=== PATIENT | female | born 1945 | race Caucasian/White ===

== ENCOUNTER 2019-08-23 20:14 | Emergency (ER) | payer MEDICARE, BC ==
[2019-08-23] MEDS ORDERED: Sodium Chloride 0.9% 10 ML Syringe FLUSH PRN (20:23)
[2019-08-23] MEDS ORDERED: Aspirin 81 MG Tab.Chew PO ONE (20:41)
[2019-08-23] MEDS ORDERED: Nitroglycerin 0.4 MG Tab.SL SL ONE (20:41)
[2019-08-23 20:48] LABS: CHLORIDE,CL 97 mmol/L (98-107); SODIUM,NA 135 mmol/L (136-145)
--- NOTE | 2019-08-23 21:28 | EDM.PDOC ---
ED HPI GENERAL MEDICAL PROBLEM - General Chief Complaint: Chest Pain Stated Complaint: chest pain Time Seen by Provider: 08/23/19 20:22 Source of Information: Reports: Patient History Limitations: Reports: No Limitations - History of Present Illness INITIAL COMMENTS - FREE TEXT/NARRATIVE: Patient comes to ER with complaint of left upper abdominal pain/pain located just beneath left anterior lower rib margin. She admits that she has had this pain "a long time'. At first she said that her first episode was early June. Later she admitted having pain in this area "long before that". The pain is always in this exact location. Appears to be triggered when she has been standing upright for a long time. Nothing specifically relieves it once present. It does not radiate anywhere. No accompanying sweating/nausea/SOB when pain present. Pushing on area makes pain hurt more. She is unable to say how long her usual attacks last, but the reason she came in tonight was because this episode has lasted over 6 hours and it has never done that before. History of colitis that she has been dealing with over the last few years. Says that overall the colitis has improved and she watches her diet closely to avoid foods that trigger the colitis. Has slowly lost weight since having the colitis. Over 20 pounds down now. Denies injuries. No fevers/chills/signs of infection. No HEENT/headache/ Respiratory complaints. Denies cough/wheeze/sob. No palpitations. Does have history of intermittent syncope that affects her out of the blue, but she has not made a connection between that and the current pain complaint. No acute nausea/emesis/stools changes when pain present. Denies UTI complaints/hematuria. Is scheduled for testing at [facility] in two days (Wednesday) for further workup of pain issue as well as syncopal episodes. Testing includes an abdominal CT scan as well as cardiac study per patient. 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 - Related Data Allergies Allergy/AdvReac Type Severity Reaction Status Date / Time Sulfa (Sulfonamide Allergy Hives Verified 08/23/19 20:38 Antibiotics) Home Meds: Home Meds Ascorbate Calcium [Vitamin C] 500 mg PO DAILY 08/23/19 [History] Ascorbic Acid/Vitamin E/Biotin [Hair Skin Nails-Biotin Gummies] 1 tab PO DAILY 08/23/19 [History] Aspirin [Halfprin] 81 mg PO DAILY 08/23/19 [History] Escitalopram [Lexapro] 10 mg PO DAILY 08/23/19 [History] Fish Oil/Rosman-3 Fatty Acids [Fish Oil 1,000 MG] 1 cap PO DAILY 08/23/19 [ History] L.acidoph,Paracasei, B.lactis [Probiotic] 2 cap PO BEDTIME 08/23/19 [History] Loratadine [Claritin] 1 tab PO DAILY 08/23/19 [History] Magnesium Oxide [Magnesium] 400 mg PO DAILY 08/23/19 [History] Multivitamin [Daily Multiple Vitamin] 1 tab PO DAILY 08/23/19 [History] Raloxifene [Evista] 60 mg PO DAILY 08/23/19 [History] Rutin/Hesp/Bioflav/C/[id number] [Bioflex] 1 tab PO BID 08/23/19 [History] carBAMazepine [Carbamazepine] 100 mg PO BID 08/23/19 [History] traZODone HCl [Trazodone HCl] 0.5 tab PO BEDTIME 08/23/19 [History] Past Medical History Cardiovascular History: Reports: Syncope, Other (See Below) (Possible previous MT per recent echo that showed apparent wall motion defect) Respiratory History: Reports: None Gastrointestinal History: Reports: Inflammatory Bowel Disease (Colitis issues over recent years), Other (See Below) (Chronic intermittent bouts of pain high in LUQ underneath rib margin) Musculoskeletal History: Reports: Osteoporosis Neurological History: Reports: Other (See Below) (Trigeminal Neuralgia) Psychiatric History: Reports: Anxiety Immunologic History: Reports: Other (See Below) (environmental allergies) Social & Family History - Tobacco Use Smoking Status *Q: Never Smoker Tobacco Use Within Last Twelve Months: No - Caffeine Use Caffeine Use: Reports: None - Alcohol Use Alcohol Use History: No Alcohol Use in Last Twelve Months: No - Recreational Drug Use Recreational Drug Use: No Drug Use in Last 12 Months: No ED ROS GENERAL - Review of Systems Review Of Systems: Comprehensive ROS is negative, except as noted in HPI. ED EXAM, GENERAL - Physical Exam Exam: See Below Exam Limited By: No Limitations General Appearance: Alert, No Apparent Distress, Thin Eye Exam: Bilateral Eye: EOMI, PERRL Ears: Hearing Grossly Normal Nose: No: Nasal Deformity, Nasal Swelling, Nasal Drainage Throat/Mouth: Normal Lips, Normal Voice, No Airway Compromise Head: Atraumatic, Normocephalic Neck: Supple, Non-Tender, Full Range of Motion Respiratory/Chest: No Respiratory Distress, Lungs Clear, Normal Breath Sounds, No Accessory Muscle Use, Chest Non-Tender Cardiovascular: Regular Rate, Rhythm, No Edema, No Murmur Peripheral Pulses: 2+: Radial (L), Radial (R) GI/Abdominal: Normal Bowel Sounds, Soft, No Distention, Other (some tenderness with palpation when palpated just underneath the left anterior lower rib margin. ). No: Guarding, Rigid, Tender (Female) Exam: Deferred Rectal (Female) Exam: Deferred Back Exam: No: CVA Tenderness (L), CVA Tenderness (R), Muscle Spasm Extremities: Normal Range of Motion, Non-Tender, No Pedal Edema, Normal Capillary Refill Neurological: Alert, Oriented, Normal Cognition, Normal Gait, No Motor/Sensory Deficits Psychiatric: Normal Affect, Normal Mood Skin Exam: Warm, Dry, Intact, Normal Color EKG INTERPRETATION EKG Date: 08/23/19 Time: 20:00 Rhythm: NSR Rate (Beats/Min): 69 [place]: Normal P-Wave: Enlarged QRS: Normal ST-T: Normal QT: Normal Comparison: NA - No Prior EKG Course - Vital Signs Last Recorded V/S: Last Vital Signs Temp Pulse Resp BP 131/69 08/23/19 20:48 Pulse Ox - Orders/Labs/Meds Orders: Active Orders 24 hr Category Date Time Status EKG Documentation Completion [RC] ASDIRECTED Care 08/23/19 20:24 Ordered Chest 2V [CR] Stat Exams 08/23/19 20:23 Ordered UA W/MICROSCOPIC [URIN] Stat Lab 08/23/19 20:23 Ordered Sodium Chloride 0.9% [Saline Flush] Med 08/23/19 20:23 Ordered 10 ml FLUSH ASDIRECTED PRN Saline Lock Insert [OM.PC] Stat Oth 08/23/19 20:23 Ordered Medication Orders Sodium Chloride (Saline Flush) 10 ml FLUSH ASDIRECTED PRN PRN Reason: Keep Vein Open Labs: Laboratory Tests 08/23/19 08/23/19 08/23/19 Range/Units 20:23 20:23 20:23 WBC 5.3 (4.0-10.2) K/uL RBC 3.80 (3.77-5.09) M/uL Hgb 11.6 L (11.7-15.5) g/dL Hct 35.9 (34.0-46.0) % MCV 94.5 (84.0-98.0) fL MCH 30.5 (28.2-33.3) pg MCHC 32.3 (31.7-36.0) g/dL RDW 12.7 (11.2-14.1) % Plt Count 129 L (150-350) K/uL Neut % (Auto) 57.1 (45.0-80.0) % Lymph % (Auto) 30.7 (10.0-50.0) % Carbon % (Auto) 9.9 (2.0-14.0) % Eos % (Auto) 1.9 (0.0-5.0) % Baso % (Auto) 0.4 (0.0-2.0) % Neut # (Auto) 3.01 (1.40-7.00) K/uL Lymph # (Auto) 1.62 (0.50-3.50) K/uL Carbon # (Auto) 0.52 (0.00-1.00) K/uL Eos # (Auto) 0.10 (0.00-0.50) K/uL Baso # (Auto) 0.02 (0.00-0.20) K/uL D-Dimer, Quantitative < 100 (0-400) ng/mL Sodium 135 L (136-145) mmol/L Potassium 4.2 (3.5-5.1) mmol/L Chloride 97 L (98-107) mmol/L Carbon Dioxide 31.6 (21.0-32.0) mmol/L BUN 20 H (7-18) mg/dL Creatinine 0.81 (0.51-1.17) mg/dL Est Cr Clr Drug Dosing TNP Estimated GFR (MDRD) > 60 mL/min Glucose 97 (74-106) mg/dL Calcium 8.6 (8.5-10.1) mg/dL Magnesium 2.1 (1.8-2.4) mg/dL Total Bilirubin 0.1 L (0.2-1.0) mg/dL AST 25 (15-37) U/L ALT 24 (12-78) U/L Alkaline Phosphatase 68 (46-116) IU/L Troponin I 0.000 (0.000-0.056) ng/mL NT-Pro-B Natriuret Pep 87 (0-125) pg/mL Total Protein 7.5 (6.4-8.2) g/dL Albumin 3.8 (3.4-5.0) g/dL TSH, Ultra Sensitive (0.358-3.740) mIU/mL 08/23/19 Range/Units 20:23 WBC (4.0-10.2) K/uL RBC (3.77-5.09) M/uL Hgb (11.7-15.5) g/dL Hct (34.0-46.0) % MCV (84.0-98.0) fL MCH (28.2-33.3) pg MCHC (31.7-36.0) g/dL RDW (11.2-14.1) % Plt Count (150-350) K/uL Neut % (Auto) (45.0-80.0) % Lymph % (Auto) (10.0-50.0) % Carbon % (Auto) (2.0-14.0) % Eos % (Auto) (0.0-5.0) % Baso % (Auto) (0.0-2.0) % Neut # (Auto) (1.40-7.00) K/uL Lymph # (Auto) (0.50-3.50) K/uL Carbon # (Auto) (0.00-1.00) K/uL Eos # (Auto) (0.00-0.50) K/uL Baso # (Auto) (0.00-0.20) K/uL D-Dimer, Quantitative (0-400) ng/mL Sodium (136-145) mmol/L Potassium (3.5-5.1) mmol/L Chloride (98-107) mmol/L Carbon Dioxide (21.0-32.0) mmol/L BUN (7-18) mg/dL Creatinine (0.51-1.17) mg/dL Est Cr Clr Drug Dosing Estimated GFR (MDRD) mL/min Glucose (74-106) mg/dL Calcium (8.5-10.1) mg/dL Magnesium (1.8-2.4) mg/dL Total Bilirubin (0.2-1.0) mg/dL AST (15-37) U/L ALT (12-78) U/L Alkaline Phosphatase (46-116) IU/L Troponin I (0.000-0.056) ng/mL NT-Pro-B Natriuret Pep (0-125) pg/mL Total Protein (6.4-8.2) g/dL Albumin (3.4-5.0) g/dL TSH, Ultra Sensitive 6.193 H (0.358-3.740) mIU/mL Meds: Medications Generic Name Dose Route Start Last Admin Trade Name Freq PRN Reason Stop Dose Admin Sodium Chloride 10 ml 08/23/19 20:23 Saline Flush FLUSH ASDIRECTED PRN Keep Vein Open Discontinued Medications Generic Name Dose Route Start Last Admin Trade Name Freq PRN Reason Stop Dose Admin Aspirin 324 mg 08/23/19 20:41 08/23/19 20:47 Aspirin PO 08/23/19 20:42 324 mg ONETIME ONE Administration Nitroglycerin 0.4 mg 08/23/19 20:41 08/23/19 20:48 Nitrostat SL 08/23/19 20:42 0.4 mg ONETIME ONE Administration - Radiology Interpretation Free Text/Narrative:: Chest xray did not show infiltrate/fluid/obvious acute change - Re-Assessments/Exams Free Text/Narrative Re-Assessment/Exam: Patient's history suggestive of non-cardiac cause for pain complaint. No change in pain with single Nitro. Patient received baby ASA. Troponin/EKG unremarkable. CBC/Chem overall showed no significant aberrations. TSH elevated. Pain reproducible with palpation. Given patient's history of colitis and location of pain, etiology could be GI in nature. She is having a CT on Wednesday to evaluate her abdomen. She is uncertain if she is also having a chest scan done or if it is a different test to evaluate her heart. This will help rule out tumor/aneurysm. Differential discussed with patient. Patient declined admission to observation and serial troponin draws/cardiac monitoring. She also does not wish to have any scans performed tonight and prefers to wait for her scheduled appointments in two days. She felt reassured that there is no obvious cardiac contribution identified at this time and wished to go home. Declined pain medication. To follow up by phone with primary provider tomorrow regarding tonight's visit and TSH value. To follow up for testing on Wednesday. Departure - Departure Time of Disposition: 21:27 Disposition: Home, Self-Care 01 Condition: Good Clinical Impression: Left upper quadrant abdominal pain of unknown etiology, Elevated TSH - Discharge Information *PRESCRIPTION DRUG MONITORING PROGRAM REVIEWED*: Not Applicable *COPY OF PRESCRIPTION DRUG MONITORING REPORT IN PATIENT BJ: Not Applicable Referrals: Joseph Valiente PA [Primary Care Provider] - Forms: ED Department Discharge Additional Instructions: Follow up as needed if you have any problems! Follow up as scheduled for tests on Wednesday and touch base with your primary provider tomorrow about tonight's visit. - My Orders Last 24 Hours: My Active Orders 08/23/19 20:23 Chest 2V [CR] Stat UA W/MICROSCOPIC [URIN] Stat Sodium Chloride 0.9% [Saline Flush] 10 ml FLUSH ASDIRECTED PRN Saline Lock Insert [OM.PC] Stat 08/23/19 20:24 EKG Documentation Completion [RC] ASDIRECTED - Assessment/Plan Last 24 Hours: My Active Orders 08/23/19 20:23 Chest 2V [CR] Stat UA W/MICROSCOPIC [URIN] Stat Sodium Chloride 0.9% [Saline Flush] 10 ml FLUSH ASDIRECTED PRN Saline Lock Insert [OM.PC] Stat 08/23/19 20:24 EKG Documentation Completion [RC] ASDIRECTED
== END 2019-08-23 21:35 | disposition home or self-care (01) ==
LOC: LL.ED 20:14
DX: R10.12 Left upper quadrant pain (principal); R94.6 Abnormal results of thyroid function studies; F41.9 Anxiety disorder, unspecified; M81.0 Age-related osteoporosis without current pathological fracture; G50.0 Trigeminal neuralgia; Z79.82 Long term (current) use of aspirin; Z79.899 Other long term (current) drug therapy; Z87.19 Personal history of other diseases of the digestive system; Z88.2 Allergy status to sulfonamides
CPT/HCPCS: 36415; 71046; 80053; 83735; 83880; 84443; 84484; 85025; 85379; 93005; 93010; 99283; 99285-25; A9270-GY

== ENCOUNTER 2023-06-29 13:01 | Emergency (ER) | payer BC, MEDICARE ==
[2023-06-29] MEDS ORDERED: Sodium Chloride 0.9% 10 ML Syringe FLUSH PRN (13:20)
[2023-06-29] MEDS ORDERED: Sodium Chloride 0.9% 1,000 ML IV ONE (13:22)
[2023-06-29 13:44] LABS: HEMATOCRIT 32.2 % (34.0-46.0); HEMOGLOBIN 11.4 g/dL (11.7-15.5); LYMPHOCYTES ABSOLUTE AUTO 0.34 K/uL (0.50-3.50); LYMPHOCYTES PERCENT AUTO 5.8 % (10.0-50.0); MEAN CORPUSCULAR HEMOGLOBIN 31.1 pg (28.2-33.3); MEAN CORPUSCULAR HGB CONC 35.4 g/dL (31.7-36.0); MONOCYTES ABSOLUTE AUTO 0.42 K/uL (0.00-1.00); MONOCYTES PERCENT AUTO 7.2 % (2.0-14.0); NEUTROPHILS ABSOLUTE AUTO 5.08 K/uL (1.40-7.00); PLATELET COUNT,PLT 144 K/uL (150-350); RED BLOOD CELL COUNT 3.66 M/uL (3.77-5.09); RED CELL DISTRIBUTION WIDTH 11.7 % (11.2-14.1); WHITE BLOOD CELL COUNT,WBC 5.8 K/uL (4.0-10.2)
[2023-06-29] MEDS ORDERED: Rocuronium 100 MG/10 ML MDV ONE (13:48)
[2023-06-29] MEDS ORDERED: Etomidate 2 MG/ML 10 ML SDV IVPUSH ONE (13:56)
[2023-06-29] MEDS ORDERED: Rocuronium 100 MG/10 ML MDV IVPUSH ONE (13:57)
[2023-06-29 13:59] LABS: APPEARANCE,URINE CLEAR; BILIRUBIN,URINE NEGATIVE (NEGATIVE); COLOR,URINE YELLOW; GLUCOSE,URINE 100 mg/dL (NEGATIVE); KETONES,URINE 80 mg/dL (NEGATIVE); LEUKOCYTE ESTERASE,URINE NEGATIVE (NEGATIVE); NITRITE,URINE NEGATIVE (NEGATIVE); OCCULT BLOOD,URINE SMALL (NEGATIVE); PH,URINE 6.5 (5.0-9.0); PROTEIN,URINE 30 mg/dL (NEGATIVE); UROBILINOGEN,URINE 0.2 E.U./dL (0.2-1.0)
[2023-06-29] MEDS ORDERED: fentaNYL 100 MCG/2 ML SDV IVPUSH ONE ×3 (14:00→14:42)
[2023-06-29 14:09] LABS: WBC,URINE 0-5 /HPF
[2023-06-29 14:11] LABS: ALANINE AMINOTRANSFERASE,ALT 13 U/L (12-78); ALBUMIN 3.8 g/dL (3.4-5.0); ALKALINE PHOSPHATASE 44 IU/L (46-116); ASPARTATE AMNIOTRANSFERASE,AST 24 U/L (15-37); BILIRUBIN TOTAL 0.6 mg/dL (0.2-1.0); BLOOD UREA NITROGEN,BUN 10 mg/dL (7-18); CALCIUM 8.1 mg/dL (8.5-10.1); CARBON DIOXIDE,CO2 23.3 mmol/L (21.0-32.0); CHLORIDE,CL 83 mmol/L (98-107); CREATININE 0.66 mg/dL (0.51-1.17); GLUCOSE RANDOM 178 mg/dL (70-99); MAGNESIUM 1.8 mg/dL (1.8-2.4); POTASSIUM,K 3.4 mmol/L (3.5-5.1); PRO B-TYPE NATRIUR PEPT,BNPPRO 1517 pg/mL (0-125)
[2023-06-29 14:13] LABS: ANION GAP 15.1 meq/L (7-15); ESTIMATED GFR 90 mL/min (>=60); SODIUM,NA 118 mmol/L (136-145)
[2023-06-29] MEDS ORDERED: fentaNYL 100 MCG/2 ML SDV ONE ×3 (14:21→14:41)
[2023-06-29] MEDS ORDERED: Sodium Chloride 3% 500 ML IV ONE (14:22)
[2023-06-29] MEDS ORDERED: Midazolam 1 MG/ML 2 ML SDV ONE ×3 (14:22→14:40)
[2023-06-29 14:32] LABS: PCO2 ARTERIAL,POC 43 mmHg (35-48); PH ARTERIAL,POC 7.2 pH (7.35-7.45); PO2 ARTERIAL,POC 70 mmHg (83-108)
[2023-06-29 14:33] LABS: BASE EXCESS ARTERIAL,POC -9 mmol/L (-2-3); O2 SATURATION ARTERIAL,POC 90.3 % (95-98); TCO2 ARTERIAL,POC 18.2 mmol/L (23-27)
[2023-06-29 14:47] LABS: BLOOD UREA NITROGEN,BUN 10 mg/dL (7-18); CALCIUM 7.8 mg/dL (8.5-10.1); CHLORIDE,CL 85 mmol/L (98-107); CREATININE 0.82 mg/dL (0.51-1.17); GLUCOSE RANDOM 179 mg/dL (70-99)
[2023-06-29 14:51] LABS: ESTIMATED GFR 74 mL/min (>=60); SODIUM,NA 120 mmol/L (136-145)
== END 2023-06-29 15:10 ==
LOC: LL.ED 13:01
DX: R56.9 Unspecified convulsions (principal); E87.1 Hypo-osmolality and hyponatremia; Z88.2 Allergy status to sulfonamides
CPT/HCPCS: 31500; 36415; 36600; 51702; 70450; 71045; 80048; 80053; 81001; 82140; 82803; 82947; 83605; 83690; 83735; 83880; 84484; 85025; 92950; 93005; 99291; 99292; J2250; J3010; J3490; J7040

== ENCOUNTER 2023-09-05 09:42 | Emergency (ER) | payer MEDICARE ==
[2023-09-05] MEDS ORDERED: Sodium Chloride 0.9% 10 ML Syringe FLUSH PRN (10:13)
[2023-09-05 10:14] LABS: BASOPHILS ABSOLUTE AUTO 0.02 K/uL (0.00-0.20); BASOPHILS PERCENT AUTO 0.5 % (0.0-2.0); EOSINOPHILS ABSOLUTE AUTO 0.05 K/uL (0.00-0.50); EOSINOPHILS PERCENT AUTO 1.3 % (0.0-5.0); HEMATOCRIT 33.9 % (34.0-46.0); HEMOGLOBIN 10.8 g/dL (11.7-15.5); LYMPHOCYTES ABSOLUTE AUTO 0.88 K/uL (0.50-3.50); LYMPHOCYTES PERCENT AUTO 22.7 % (10.0-50.0); MEAN CORPUSCULAR HEMOGLOBIN 30.6 pg (28.2-33.3); MEAN CORPUSCULAR HGB CONC 31.9 g/dL (31.7-36.0); MONOCYTES ABSOLUTE AUTO 0.36 K/uL (0.00-1.00); MONOCYTES PERCENT AUTO 9.3 % (2.0-14.0); NEUTROPHILS ABSOLUTE AUTO 2.57 K/uL (1.40-7.00); NEUTROPHILS PERCENT AUTO 66.2 % (45.0-80.0); PLATELET COUNT,PLT 148 K/uL (150-350); RED BLOOD CELL COUNT 3.53 M/uL (3.77-5.09); WHITE BLOOD CELL COUNT,WBC 3.9 K/uL (4.0-10.2)
[2023-09-05 10:37] LABS: ALBUMIN 3.7 g/dL (3.4-5.0); BILIRUBIN TOTAL 0.3 mg/dL (0.2-1.0); CALCIUM 9.2 mg/dL (8.5-10.1); CARBON DIOXIDE,CO2 28.9 mmol/L (21.0-32.0); POTASSIUM,K 4.2 mmol/L (3.5-5.1); PROTEIN TOTAL,TP 6.8 g/dL (6.4-8.2)
[2023-09-05 10:43] LABS: ANION GAP 15.3 meq/L (7-15)
[2023-09-05 10:44] LABS: CREATININE 1.02 mg/dL (0.51-1.17); EST CRCL DRUG DOSING (CG) 42.87 mL/min
== END 2023-09-05 11:35 | disposition home or self-care (01) ==
LOC: LL.ED 09:42 → SUPCPDRO 09:42 → LL.ED 11:35
DX: R55 Syncope and collapse (principal); M19.90 Unspecified osteoarthritis, unspecified site; Z88.2 Allergy status to sulfonamides; Z79.899 Other long term (current) drug therapy; Z79.82 Long term (current) use of aspirin
CPT/HCPCS: 36415; 80053; 82947; 84484; 85025; 93005; 93010; 99284